=== PATIENT | male | born 1965 | race Caucasian/White ===

== ENCOUNTER 2025-07-24 14:25 | Emergency (ER) | payer MEDICAID ==
[~2025-07-24] VITALS: Ht 172.7 cm; Wt 90.7 kg
[2025-07-24 14:40] VITALS: BP 144/82; PULSE 89; RESP 18; O2SAT 96
[2025-07-24] MEDS ORDERED: LEVO125T PO (14:52)
--- NOTE | 2025-07-24 14:52 | Physician Documentation ---
HPI ~ General Chief Complaint: Medication Request Stated Complaint: MED REQUEST Time Seen by MD: 14:44 History of Present Illness HPI Comments 59-year-old male who presents to the emergency department with request for prescription refill was Synthroid 125 mcg. He has been without his medication for four days. He is trying to establish care with [facility]. Otherwise is doing well. Medication Reconciliation Allergies: Coded Allergies: No Known Allergies (Unverified , 07/24/25) Scheduled Levothyroxine Sodium (Synthroid), 1 TAB PO DAILY Review of Systems All Other Systems at this time: Reviewed and Negative Physical Exam Physical Exam Vital Signs: RN Vital Signs have been reviewed: Yes, Temperature: 97.8, Source: Oral, Heart Rate: 89, Respiratory Rate: 18, BP: 144/82, Pulse Oximetry: 96, Weight: 90.700 Oxygen Flow Rate: 0 General Appearance: alert, WD/WN, no apparent distress Pupils/EOM/Fundus: PERRLA Respiratory: no respiratory distress Chest: no accessory muscle use Cardiovascular: normal peripheral pulses Gastrointestinal: non-tender Neurologic: oriented x4 Motor / Sensory: no motor deficit, no sensory deficit Affect: appropriate Skin: warm/dry Progress Results/Orders Results/Orders Vital Signs 07/24/25 14:40 Temp 97.8 Pulse 89 Resp 18 B/P (MAP) 144/82 Pulse Ox 96 O2 Flow Rate 0 Medical Decision Making Additional information obtaine: other (Rx) Findings Examination history warrants one time prescription refills through the emergency department. Patient is to obtain prescription and begin as directed. He will follow up with [facility] to establish care for further management of his hypothyroidism. Patient's safely discharged in the emergency department. Differential Dx:Considerations: Include: Adverse circumstances, Economic, Psychosocial, Medical services unavail., Medication refill, Medication non-com pliance Departure Disposition: HOME / SELF CARE / HOMELESS Impression: Primary Impression: Hypothyroidism Qualified Codes: E03.9 - Hypothyroidism, unspecified Additional Impression: Medication refill Condition: Stable Discharge Instructions: Medicine Refill at the Emergency Department Additional Instructions: PLEASE FOLLOW UP WITH [facility] FOR FURTHER EVALUATION AND MANAGEMENT OF THE HYPOTHYROIDISM. THANK YOU FOR VISITING [facility]. Referrals: NO PRIMARY CARE PROVIDER (PCP) Prescriptions Levothyroxine Sodium (SYNTHROID) 125 Mcg Tablet 1 TAB PO DAILY for 30 Days, #30 TAB 0 Refills Prov: HAO MATHIS PAC 07/24/25 Education Educated: Patient Educated regarding: diagnosis, treatment, prognosis, need for follow up Signature Scribe Signature: . Attestation: . HAO MATHIS PAC Jul 24, 2025 14:52
[2025-07-24 15:16] VITALS: TEMP 97.8
== END 2025-07-24 15:17 | disposition home or self-care (01) ==
LOC: ER 14:26
DX: E03.9 Hypothyroidism, unspecified (principal); Z76.0 Encounter for issue of repeat prescription
CPT/HCPCS: 99282

== ENCOUNTER 2025-08-31 14:33 | Emergency (ER) | payer MEDICAID ==
[~2025-08-31] VITALS: Ht 172.7 cm; Wt 92.0 kg
[~2025-08-31 14:33] MED LIST: LEVO125T PO
[2025-08-31 14:43] VITALS: BP 161/104; PULSE 110; RESP 16; TEMP 96.7; O2SAT 97
[2025-08-31] MEDS ORDERED: LEVO125T PO (14:47)
--- NOTE | 2025-08-31 14:49 | Physician Documentation ---
HPI ~ General Chief Complaint: Medication Refill Stated Complaint: MULTIPLE MED COMPLAINTS Time Seen by MD: 14:43 OK to notify your PCP?: Yes Source: patient Mode of Arrival: POV Exam Limitations: no limitations History of Present Illness HPI Comments Requesting refill of levothyroxine 125 mcg. Last dose was this morning. No other medical complaints at this time. Medication Reconciliation Allergies: Coded Allergies: No Known Allergies (Unverified , 07/24/25) Scheduled Levothyroxine Sodium (Synthroid), 1 TAB PO DAILY Past Medical History Past Medical History: Hypothyroidism Review of Systems All Other Systems at this time: Reviewed and Negative Physical Exam Physical Exam Vital Signs: RN Vital Signs have been reviewed: Yes, Temperature: 96.7, Source: Temporal, Heart Rate: 110, Respiratory Rate: 16, BP: 161/104, Pulse Oximetry: 97, Weight: 92.000 Oxygen Flow Rate: 0 Pulse Oximetry Reflects: adequate oxygenation Physical Exam General: Alert, no distress. HEENT: No injection, moist mucous membranes. Neck: Full range of motion. Respiratory: No respiratory distress, equal chest rise and fall. Chest: No accessory muscle use. Cardiovascular: Regular rate and rhythm. Gastrointestinal: Nondistended. Extremities: Normal range of motion, no deformity. Neurologic: Oriented x4. Psychiatric: Normal mood and affect. Skin: Normal color, warm and dry. Progress Results/Orders Results/Orders Vital Signs 08/31/25 14:43 Temp 96.7 Pulse 110 Resp 16 B/P (MAP) 161/104 Pulse Ox 97 O2 Flow Rate 0 Medical Decision Making Additional information obtaine: old records Findings Requesting refill of levothyroxine 125 mcg. Reports the last dose was yesterday. Prescription sent to the pharmacy. Differential Dx:Considerations: Include: Adverse circumstances, Medical services unavail., Medication refill, Medication non-compliance Departure Disposition: HOME / SELF CARE / HOMELESS Impression: Primary Impression: Encounter for medication refill Discharge Instructions: Medicine Refill at the Emergency Department Additional Instructions: Follow up with the regular doctor for future refills. Return back here for any new or worsening symptoms. Referrals: NO PRIMARY CARE PROVIDER (PCP) Prescriptions Levothyroxine Sodium (SYNTHROID) 125 Mcg Tablet 1 TAB PO DAILY for 30 Days, #30 TAB 0 Refills Prov: COURTNEY JOLLEY [employer] 08/31/25 Education Educated: Patient Educated regarding: diagnosis, treatment, prognosis, need for follow up Additional Comment Medical Screen Exam This patient recieved a medical screening examination. After reviewing the individual's medical complaints with presenting symptoms and performing an appropriate physical examination, it was determined that no immediate life- threatening emergency medical condition is present. This individual is also not a women having contractions. Signature Scribe Signature: . Attestation: Scribed for Courtney Jolleyp by Courtney Colón NP . 08/31/25 14:46 Parts of this note were created using [employer] voice recognition software program. While efforts were made to correct any mistakes made by this voice recognition software program, nonsensical phrases may remain in this note. In addition, there may be errors and syntax, grammar, content and spelling. + COURTNEY JOLLEY [employer] Aug 31, 2025 14:49
== END 2025-08-31 14:57 | disposition home or self-care (01) ==
LOC: ER 14:33
DX: E03.9 Hypothyroidism, unspecified (principal); Z76.0 Encounter for issue of repeat prescription; Z79.899 Other long term (current) drug therapy
CPT/HCPCS: 99282